=== PATIENT | female | born 1995 | race Caucasian/White ===

== ENCOUNTER → 2018-07-16 13:11 | Outpatient (CLI) | payer BC ==
[~2018-07-16 13:11] MED LIST: HYDROCODONE-APA1 TAB PO; IBUPROFEN600 MG PO; PRENATAL COMPLE1 TAB PO
== END | disposition home or self-care (01) ==
LOC: D.LDO 13:11
PROVIDERS: ATTEND Obstetrics & Gynecology
DX: O26.893 Other specified pregnancy related conditions, third trimester (principal)

== ENCOUNTER 2018-10-22 18:17 | Outpatient (CLI) | payer BC ==
[2018-10-22 19:14] LABS: APPEARANCE CLEAR (CLEAR); BILIRUBIN NEGATIVE (NEGATIVE); COLOR YELLOW (YELLOW); GLUCOSE NEGATIVE (NEGATIVE); KETONE NEGATIVE (NEGATIVE); NITRITE NEGATIVE (NEGATIVE); PROTEIN NEGATIVE (NEGATIVE); SPECIFIC GRAVITY 1.015 (1.005-1.020); UROBILINOGEN NORMAL (NORMAL)
[2018-10-22 19:16] LABS: BACTERIA MANY /hpf (NONE SEEN); EPITHELIAL CELLS 0-5 /hpf (0-5); RED CELLS - URINE 0-5 /hpf (0-5); WHITE CELLS - URINE 0-5 /hpf (0-5)
== END 2018-10-23 06:00 | disposition home or self-care (01) ==
LOC: D.LDO 18:17 → D.LD 21:50 → D.LDO 10-23 06:00
PROVIDERS: ATTEND Obstetrics & Gynecology
DX: O26.899 Other specified pregnancy related conditions, unspecified trimester (principal); Z3A.00 Weeks of gestation of pregnancy not specified

== ENCOUNTER 2018-10-26 01:59 | Inpatient (IN) | payer BC ==
[2018-10-26] VITALS (14 sets, daily range): BP systolic 110–138; BP diastolic 55–70; BMI 29.2
[2018-10-26 02:31] LABS: APPEARANCE CLEAR (CLEAR); BILIRUBIN NEGATIVE (NEGATIVE); COLOR YELLOW (YELLOW); GLUCOSE NEGATIVE (NEGATIVE); KETONE NEGATIVE (NEGATIVE); NITRITE NEGATIVE (NEGATIVE); PROTEIN NEGATIVE (NEGATIVE); UROBILINOGEN NORMAL (NORMAL)
[2018-10-26] MEDS ORDERED: MACROBID100 MG PO (03:31)
[2018-10-26 03:44] LABS: HEMATOCRIT 35.4 % (36.0-48.0); HEMOGLOBIN 12.5 g/dL (12-16); MCH 31.1 pg (26.0-34.0); MCHC 35.3 g/dL (31.0-37.0); MCV 88.1 fL (80.0-100.0); MEAN PLATELET VOLUME 11.6 fL (7.4-10.4); RBC 4.02 10x6/uL (4.00-5.40); WBC 11.6 10x3/uL (4.8-10.8)
--- NOTE | 2018-10-26 04:37 | NUR ---
0425 VIABLE BABY GIRL DELIVERED CORD BLOOD AND GASES DONE AND SENT OUT, MARI.
--- NOTE | 2018-10-26 05:25 | NUR ---
FUNDUS IS FIRM, MIDLINE AT THE UMBILICUS. EDMUND PAD IN PLACE. MODERATE LOCHIA NOTED ON EDMUND PAD, NO CLOTS PRESENT. NEW PAD APPLIED. WILL CONTINUE TO MONITOR.
--- NOTE | 2018-10-26 05:49 | NUR ---
REC'D BACK TO ROOM 1273 FROM RECOVERY ROOM. AA&OX4. DENIES PAIN. VSS. FUNDUS FIRM, MIDLINE AND U2 WITH SMALL AMT RUBRA LOCHIA, NO CLOTS PRESENT. BREATH SOUNDS CLEAR AND EQUAL. BOWEL SOUNDS HYPOACTIVE X4 QUADRANTS. BULKY DRSG NOTED TO LOWER TRANSVERSE ABD, NO DRAINAGE NOTED. 300 MLS CLEAR LIGHT YELLOW URINE EMPTIED FROM CHAPMAN. INSTRUCTED ON INCENTIVE SPIROMETER USE WITH RETURN DEMONSTRATION NOTED. ICE PACK PLACED. SCD'S ON. PLAN OF CARE DISCUSSED, VERBALIZES UNDERSTANDING. DENIES QUESTIONS. FAMILY UPDATED AND BROUGHT TO ROOM PER PT REQUEST. NBN CONTACTED FOR UPDATE ON . BED IN LOW POSITION WITH UPPER SIDE RAILS RAISED X2. CALL LIGHT AND PHONE WITHIN REACH.
--- NOTE | 2018-10-26 05:58 | NUR ---
CORRECTION~FUNDUS IS FIRM U-2.
--- NOTE | 2018-10-26 06:10 | NUR ---
V/S REMAIN STABLE. FUNDUS REMAINS FIRM, MIDLINE AND U2 WITH SMALL AMT RUBRA LOCHIA, NO CLOTS PRESENT. TORADOL GIVEN AND NEW BAG NS WITH 20 UNITS PIT HUNG PER ORDER. EDUCATED ON MED AND FREQUENCY. FAMILY REMAINS AT BEDSIDE CONVERSING WITH PT.
--- NOTE | 2018-10-26 07:10 | NUR ---
ASSUME CARE OF THIS PATIENT AT THIS TIME. SITTING UP IN BED, U/3 FIRM MIDLINE, RUBRA SMALL TO MOD, VS OBTAINED, NURSERY RN TO ROOM WITH . PT PLANS TO BREAST FEED. NURSERY RN ASSISTING PATIENT. DENIES THOUGHTS OF HURTING SELF OR OTHERS. MOVES LE SLIGHTLY AT FEET. UNABLE TO LIFT HER LEGS. 5/10 INCISIONAL BURNING. RECIEVED TORADOL AND DEMERAL AT APPROX 0600. DR BEE ON L&D AND INFORMED THAT PT MAY NOT TOLERATE WAITING 3 MORE HOURS BEFORE NEXT PAIN MED. HE WILL ENTER ORDERS.
--- NOTE | 2018-10-26 07:40 | NUR ---
CALLED TO ROOM, PT STATES "I THINK I HAVE SOMETHING COMING OUT DOWN THERE". SATURATED TWO AND 1/2 EDMUND-PADS. U/3 FIRM CLEANED EDMUND-AREA, NO CONTINUED BLEEDING. DR BEE ON FLOOR AND NOTIFIED.
--- NOTE | 2018-10-26 07:48 | OP ---
PATIENT NAME: NELL FARRELL MEDICAL RECORD: [id number] :93 LOCATION:[facility] [id number] ADMISSION DATE:10/26/18 SURGEON: SALVATORE BEE MD DATE OF OPERATION: 10/26/2018 PREDELIVERY DIAGNOSES: 1. Active labor at 37 weeks post 2. Prior section. POSTOPERATIVE DIAGNOSES: 1. Mother delivered at 37 weeks. 2. History of prior . PROCEDURE: Repeat low transverse section. SURGEON: Salvatore Bee MD PET FOOD DEBONER: Duran Lloyd. ANESTHESIA: Spinal. FINDINGS: Viable female , vertex presentation, Apgars 9 and 9, weight 2565 grams. Unremarkable uterus, tubes, and ovaries bilaterally. SPECIMEN REMOVED: Placenta. SPECIMEN DISPOSITION: Discarded. ESTIMATED BLOOD LOSS: 800 cc. URINE: 200 cc of clear urine. FLUIDS: 2000 cc of Lactated Ringer's. COMPLICATIONS: None. DRAIN: Beatty to gravity. INDICATIONS: The patient is a 22-year-old multiparous female with prior history of section. The patient is at 37 weeks' gestation with painful regular contractions. The patient was consented for repeat low transverse section. DESCRIPTION OF PROCEDURE: After informed consent was assured, the patient was taken to the operating room where anesthetic was obtained without difficulty. The patient is now prepped and draped and assessment of the anesthetic finds it to be adequate. Incision was made over the old scar, carried down to the underlying layer of the fascia, which was opened in the midline and extended laterally. Rectus bellies were dissected free superiorly and inferiorly, then in the midline. DeLee all-purpose retractor was inserted. Bladder flap developed and the bladder blade now reinserted. Low transverse hysterotomy was performed and delivered onto the abdomen atraumatically. The cord was doubly clamped and cut and the infant was passed to the attendant. A cord segment was taken for samples and the placenta was delivered via Crede maneuver. Uterus was now exteriorized, cleared of all clot and debris. Uterus was OPERATIVE REPORT [id number] NELL FARRELL returned to the abdomen and DeLee retractor placed. The hysterotomy was closed with running locked stitch of chromic. The uterus again was exteriorized. Posterior cul-de-sac cleared of all clot and debris. Uterus was returned to the abdomen and pelvis was irrigated. Inspection of the hysterotomy reveals adequate hemostasis. The rectus bellies were reapproximated in the midline with a loose interrupted chromic stitch. PDS was used to reapproximate the fascia. Subcutaneous tissue was irrigated. Bleeding vessels cauterized and the skin reapproximated with marycarmen. Sterile dressing is applied. Sponge, lap, needle counts were correct times 2. TRANSINT:[id number] Voice Confirmation ID: [id number] DOCUMENT ID: [id number] SALVATORE BEE MD at 0748 CC: [id number] DICTATION DATE: 10/26/18 0452 COMPLEX DIRECTOR: 10/26/18 0538 ADM IN [facility] [address] [place] [address]
--- NOTE | 2018-10-26 08:00 | NUR ---
U/3 FIRM MIDLINE, RUBRA SMALL TO MOD. NO CONTINUOUS ACTIVE BLEEDING. IN ROOM. VISITORS AT BEDSIDE. CLEAR LIQUID DIET TRAY PRESENT. SCD'S ON AND WORKING BILATERLLY. IV LR 20 UNITS PITOCIN INFUSING INTO LEFT WRIST. NO SIGNS OF INFILTRATION. CHAPMAN DRAINING YELLOW URINE. SIDE RAILS UP X 2, CALL LIGHT IN REACH. ICE PACK ON INCISIONAL DRESSING.
--- NOTE | 2018-10-26 08:11 | NUR ---
CYTOTEC 200 MCG GIVEN PO PER MD ORDER AFTER EXPLAINING TO PATIENT PURPOSE OF MEDICATION.
--- NOTE | 2018-10-26 09:06 | NUR ---
MOVING LOWER EXTREMETIES. ABLE TO LIFT BUTTOCKS UP. U/3 FIRM MIDLINE. DEMEROL 50 MG GIVEN SLOW IVP FOR RELIEF OF C/O CRAMPING/BURNING 10/13. CLEAN PERINEAL AREA WITH WARM WASHCLOTH. CLEAN CHUX ON BED. NEW EDMUND-PADS X 2 PLACED. USED INCENTIVE SPIROMETER X3 FOLLOWED BY WEAK COUGH. INSTRUCTED ON INCISIONAL SPLINTING. POSITIONED TO RIGHT SIDE. FRESH ICE PACK PLACE OVER INCISIONAL DRESSING. SCD'S ON BILATERALLY AND FUNCTIONING. SIDE RAILS UP X 2, CALL LIGHT IN REACH. INFANT IN CRIB, RESP EVEN. FOB SLEEPING ON COUCH. TO CALL IF ANYTHING IS NEEDED.
--- NOTE | 2018-10-26 10:20 | NUR ---
SITTING UP IN BED HOLDING CELL PHONE. INFANT IN CRIB. FOB ASLEEP ON COUCH. 3-08/13 CRAMPJUAN MANUEL SAYS HER PAIN IS MUCH BETTER. SAYS CURRENT PAIN IS LIVABLE. STRAWBERRY JELLO GIVEN. DISCUSSED PLAN OF CARE THIS AM AND ANTICIPATION FOR "NORMALIZATION" THIS AFTERNOON PER DR SOUZA ROUTINE POST OP CARE. VERABLIZED UNDERSTANDING. U/3 FIRM MIDLINE, RUBRA SMALL. SIDE RAILS UP X 2, CALL LIGHT IN REACH.
--- NOTE | 2018-10-26 11:31 | NUR ---
HOLDING IN ARMS . RUBRA SCANT. 3/10 INCISIONAL PAIN. NO REQUESTS AT THIS TIME. VISITORS X 2 IN ROOM. SIDERAILS UP X 2, CALL LIGHT IN REACH. TO CALL IF ANYTHING IS NEEDED. VERBALIZED UNDERSTANDING.
--- NOTE | 2018-10-26 12:28 | NUR ---
SITTING UP IN BED TALKING TO VISITORS. L&D ADMIT HISTORY COMPLETED. DENIES NEEDING ANYTHING AT THIS TIME. SIDE RAILS UP X 2, CALL LIGHT IN REACH. TO CALL IF ANYTHING IS NEEDED.
--- NOTE | 2018-10-26 13:10 | NUR ---
CALLED TO ROOM BY PT TO CHECK EDMUND-PAD. MOD BLOOD NOTED, UTERUS U/2 FIRM, CLEANED UP PERINEAL AREA. NO CONTINUOUS ACTIVE BLEEDING. CLEAN CHUX AND EDMUND-PAD X2 PLACED. CHAPMAN DRAINING. STATES "I'M NOT REALLY HAVING PAIN, JUST SORE. 3-08/13" ASKED ABOUT CONTINUING ANTIBIOTIC FOR UTI TREATED COUPLE OF DAYS AGO (MACROBID). WILL CONTACT MD TO CHECK. VERBALIZED UNDERSTANDING. NO ADDITIONAL REQUESTS. HAS BEEN USING INCENTIVE SPIROMETER HOURLY. CALL LIGHT IN REACH.
--- NOTE | 2018-10-26 13:20 | NUR ---
DR BEE CONTACTED REGARDING HX OF UTI. ALSO ASKED MD IF HE WANTED PT NORMALIZED AT 12 HOURS. ORDERS RECEIVED.
--- NOTE | 2018-10-26 14:03 | NUR ---
CALLED TO ROOM BY PATIENT. FEELS LOCHIA FLOW. EVALUATED EDMUND-PAD, SMALL LOCHIA RUBRA, NOT SATURATING PAD, NOTED. CLEANED PERINEAL AREA, NO ACTIVE BLEEDING, NO CLOT NOTED AT INTROITUS. CLEAN CHUX AND EDMUND-PAD PLACED ON BED. EXPLAINED PP LOCHIA FLOW. WILL CONTINUE TO MONITOR. INFORMED WILL BE GETTING ROCEPHIN IVPB FOR UTI TREATMENT. REGULAR DIET AT BEDSIDE, INFANT IN CRIB SLEEPING. FOB SLEEPING ON COUCH. SIDE RAILS UP X 2, CALL LIGHT IN REACH.
--- NOTE | 2018-10-26 14:53 | NUR ---
DEMEROL 50 MG GIVEN SLOW IVP FOR 5/10 INCISIONAL BURNING AFTER DISCUSSING PAIN MANAGEMENT OPTIONS. STATES "THE ONE THAT WORKS THE FASTEST." FRESH ICE PACK GIVEN AND PLACED OVER INCISIONAL DRESSING. GETTING READY TO BREASTFEED. WILL TURN LIGHTS ON LOW. EDMUND-PADS CLEAN. SIDERAILS UP X 2, CALL LIGHT IN REACH.
--- NOTE | 2018-10-26 16:15 | NUR ---
SITTING UP IN BED . SAYS SHE REALLY ISN'T HAVING ANY PAIN. ASKED PT IF SHE MEANS ZERO. STATES "MAYBE A 2". NO REQUEST. VISITORS IN ROOM. TO CALL IF ANYTHING IS NEEDED.
--- NOTE | 2018-10-26 17:08 | NUR ---
ENRRIQUE GATES AFTER . EDMUND-CARE COMPLETED. CHAPMAN DC'D WITHOUT DIFFICULTY. IV FLUIDS DC'S. SALINE LOCK LEFT IN PLACE. ATE FOOD BROUGHT IN BY FAMILY, ENCOURAGED TO AVOID EATING TOO MUCH AT THIS TIME. VERBALIZED UNDERSTANDING. EDMUND-PAD PLACED CLEAN CHUX ON BED. DISCUSSED CHANGED OF PAIN MEDS TO ORAL PILLS AND TO AVOID WAITING TOO LONG TO ASK FOR PAIN MEDICATION. VERBALIZED UNDERSTANDING. SIDE RAILS UP, CALL LIGHT IN REACH. VISITORS AND INFANT IN ROOM.
--- NOTE | 2018-10-26 18:11 | NUR ---
C/O 6/10 STINGING BURNING PAIN RIGHT SIDE OF INCISION. PERCOCET 5 MG GIVEN PO FOR RELIEF. ASSISTED WITH POSITION CHANGE TO LEFT SIDE. POSITIONED WITH PILLOW. U/2 FIRM MIDLINE, EDMUND-PAD CLEAN. DOES NOT FEEL NEED TO VOID. DR BEE WAS CONTACTED TO CHECK CHANGE IN IV TORADOL TO PO TORADOL. ORDERS WERE CHANGED. WILL NEED CINEMA OR THEATRE MANAGER TO GET MED. FRESH ICE PACK GIVEN. VISITORS IN ROOM, INFANT IN ARMS OF FOB. SIDE RAILS UP X2 CALL LIGHT IN REACH. ENCOURAGED TO TRY TO GET SOME SLEEP. VERBALIZED UNDERSTANDING.
--- NOTE | 2018-10-26 19:15 | NUR ---
PT UP TO RESTROOM TO VOID 350 ML NOTED AT THIS TIME. DRESSING TO ABDOMEN DRY AND INTACT. SALINE LOCK TO THE LEFT WRIST. SITE CLEAR AND PATENT. Gloria BELLO RN
--- NOTE | 2018-10-26 19:57 | NUR ---
1939 PT ASSISTED BACK TO BED AT THIS TIME. LUNGS CLEAR. BOWEL SOUNDS TO UPPER QUADRANTS ACTIVE. BILATERAL LOWER QUADRANTS HYPOACTIVE. PT STATES THAT SHE IS STARTING TO PASS GAS. FUNDUS FIRM, U/2, SMALL LOCHIA NOTED. PT TOLERATING REGULAR DIET AT THIS TIME. NO NAUSEA/VOMITING NOTED. SCDS ON AND FUNCTIONAL. NO ACUTE DISTRESS NOTED. SIDERAILS UP X2 FOR SAFETY. CALL LIGHT IN PT REACH. SPOUSE AT BEDSIDE AND SUPPORTIVE. Gloria BELLO RN
--- NOTE | 2018-10-26 21:04 | NUR ---
PT ASLEEP BUT EASILY AWAKENED AT THIS TIME. SCHEDULED DOSE OF CYTOTEC GIVEN AT THIS TIME. NO DISTRESS NOTED. Gloria BELLO RN
--- NOTE | 2018-10-26 21:35 | NUR ---
PT ASSISTED UP TO VOID. PT VOIDED 300 ML. SCANT LOCHIA NOTED. NO DISTRESS NOTED. Gloria BELLO RN
--- NOTE | 2018-10-26 21:56 | NUR ---
MEDICATED FOR PAIN LEVEL OF 7. WILL CONTINUE TO MONITOR. Gloria BELLO RN
--- NOTE | 2018-10-27 01:06 | NUR ---
HS CAME TO LABOR UNIT TO OVERRIDE TORADOL, TORADOL ADMINISTERED PER MD ORDERS AT THIS TIME. PT ASSISTED UP TO BATHROOM, VOIDED WITHOUT DIFFICULTY, BACK TO BED AND SCD BOOTS REPLACED AND MACHINE IN WORKING ORDER, FRESH ICE PACK PROVIDED FOR ABDOMEN, PT DENIES OTHER NEEDS. WILL CONTINUE TO MONITOR.
[2018-10-27 06:14] LABS: BASOPHILS 0.2 % (0-2); EOSINOPHILS 1.4 % (0-7); IMMATURE GRANULOCYTES 0.4 % (0-5); LYMPHOCYTES 23.1 % (15-50); MCH 30.5 pg (26.0-34.0); MCHC 34.3 g/dL (31.0-37.0); MEAN PLATELET VOLUME 11.4 fL (7.4-10.4); MONOCYTES 9.4 % (2-11); NEUTROPHILS 65.5 % (40-80); RDW 13.2 % (11.5-14.5); WBC 10.2 10x3/uL (4.8-10.8)
[2018-10-27 06:23] LABS: HEMATOCRIT 28.3 % (36.0-48.0); HEMOGLOBIN 9.7 g/dL (12-16); PLATELET COUNT 125 10x3/uL (130-400); RBC 3.18 10x6/uL (4.00-5.40)
[2018-10-27 07:40] VITALS: BP 113/61
--- NOTE | 2018-10-27 07:40 | NUR ---
AM ASSESSMENT COMPLETED. PT HAS LARGE WHITE DRESSING OVER INCISION, C/D/I. ABDOMEN PALPATES SOFT. PT REPORTS PASSING GAS. DENIES HEAVY BLEEDING OR PASSING CLOTS. PT DENIES SOB, NAUSEA, OR DIFFICULTY BREATHING. SEE FLOWSHEET FOR ASSESSMENT. PLAN FOR TRANSFER TO NEW ROOM EXPLAINED TO PT AND PT AGREES. FRESH ICE WATER SERVED TO PT. PT DENIES ALL OTHER NEEDS.
--- NOTE | 2018-10-27 08:49 | NUR ---
ROUNDS MADE. PT SITTING UP IN BED GETTING READY TO GO TO THE BATHROOM. PAIN AND NEEDS ASSESSED. PT DENIES NEEDS AT PRESENT. RATES PAIN 3/10. QUESTIONS IF SIG OTHER CAN GET HER SOMETHING ELSE TO EAT FOR BREAKFAST. INFORMED THAT IS FINE.
--- NOTE | 2018-10-27 12:20 | NUR ---
THIS RN TO BEDSIDE FOR PAIN MEDICATION ADMINISTRATION PER PT REQUEST. PT CURENTLY SITTING UP IN BED NURSING W/OLDER CHILD IN BED W/HER. PT DENIES FURTHER NEEDS AT THIS TIME. FAMILY HAS BROUGHT LUNCH FROM [facility]. FAMILY AT BEDSIDE.
--- NOTE | 2018-10-27 13:27 | NUR ---
rounds made for pain reassessment. pt rates pain 2/10. while at bedside, pt request to ambulate off the unit and for saline lock to be removed. after reviewing pt labs, saline lock removed w/site wnl. bandaid placed over site. pt dresses in her own clothing. transports via open crib to [facility] so she and family may ambulate off unit. pt denies further needs at this time.
--- NOTE | 2018-10-27 14:29 | NUR ---
ROUNDS MADE. PT SITTING ON SIDE OF BED W/ UP IN ARMS. PT REPORTS SHE IS GETTING READY TO NURSE. RATES PAIN 3/10. DENIES NEEDS AT THIS TIME.
--- NOTE | 2018-10-27 18:30 | NUR ---
pt ambulatory in hallway to nurses desk. medication adm record reviewed with pt as pt requests pain medication. see emar for all meds adm by this rn. to pt's room, abdomen palpates soft, dressing over incision c/d/i. encouraged pt to remove bandage after taking a shower tonight. pt agrees. fresh ice water served to pt. sr up x 2, call light and phone within reach. fob at bedside, holding infant. pt denies all other needs.
--- NOTE | 2018-10-27 19:45 | NUR ---
PM ROUNDS MADE, PT VISITING WITH FAMILY, IN ROOM, INFORMED PT THAT I WILL RETURN SHORTLY TO DO ASSESSMENT, PT VERBALIZES UNDERSTANDING, DENIES NEEDS AT THIS TIME
[2018-10-27 20:15] VITALS: BP 121/74
--- NOTE | 2018-10-27 21:15 | NUR ---
ASSESSMENT PER FLOW SHEET, PT OUT OF SHOWER, BACK TO BED, PT REMOVED DRESSING, BIKINI INC WITH LEWIS INTACT, SMALL DRAINAGE NOTED, EDMUND PAD OVER INC FOR COMFORT AND MOISTURE CONTROL, PT INST ON AND VERBALIZES UNDERSTANDING OF INCISIONAL CARE, FF, ML, U/1, PT REPORTS LITE BLEEDING WITH A FEW SMALL STRINGY CLOTS EARLIER IN THE DAY, PT REPORTS FLATUS, NO BM AND VOIDING WITH NO DIFFICULTY, PT DENIES NEEDS AT THIS TIME, FAMILY AT BEDSIDE, TRASH REMOVED
--- NOTE | 2018-10-27 22:30 | NUR ---
PT HOLDING INFANT, FOB AT BEDSIDE, PT REQUESTS THAT SHE BE WOKE UP FOR ADM OF PAIN MED, INFORMED PT THAT I WILL ADM PAIN MED DURING VS, PT VERBALIZES UNDERSTANDING, DENIES ARNULFO NEEDS
[2018-10-27 23:48] VITALS: BP 106/66
--- NOTE | 2018-10-27 23:48 | NUR ---
PT AWAKE HOLDING , VS OBTAINED, ADM TORADOL AND PAIN MED PO PER MD ORDERS, SEE EMAR, PT DENIES FURTHER NEEDS, FOB ASLEEP AT BEDSIDE
--- NOTE | 2018-10-28 01:00 | NUR ---
PT RESTING WITH EYES CLOSED, RESP QUIET, NO DISTRESS NOTED, LEFT UNDISTURBED AT THIS TIME, IN OPEN CRIB CART AND FOB ASLEEP AT BEDSIDE
--- NOTE | 2018-10-28 03:02 | NUR ---
PT AMB TO FRON DESK, GAIT STEADY, REQUESTED AND PROVIDED EDMUND PADS, DENIES FURTHER NEEDS
[2018-10-28 04:20] VITALS: BP 113/67
--- NOTE | 2018-10-28 04:20 | NUR ---
PT AWAKE, HOLDING INFANT, VS OBTAINED, ADM PAIN MED PER MD ORDERS, PT DENIES FURTHER NEEDS, FOB ASLEEP AT BEDSIDE
--- NOTE | 2018-10-28 06:41 | NUR ---
PT AWAKE, ADM TORADOL PER MD ORDERS, SEE EMAR, PT DENIES NEEDS AT THIS TIME
--- NOTE | 2018-10-28 07:00 | NUR ---
SHIFT REPORT TO DAY SHIFT
[2018-10-28 07:18] LABS: RAPID PLASMA REAGIN Non Reactive (Non Reactive)
--- NOTE | 2018-10-28 07:20 | NUR ---
dr. pride on unit, rounds made.
--- NOTE | 2018-10-28 08:00 | NUR ---
am assessment completed. see flowsheet.
[2018-10-28 08:04] VITALS: BP 101/68
--- NOTE | 2018-10-28 11:00 | NUR ---
dr. pride on unit, scripts given to this rn by for percocet 7.5, and motrin 800 mg for discharge.
--- NOTE | 2018-10-28 12:47 | NUR ---
pt up to bedside chair, pillows provided for comfort. pt has requested pain medication for "burning type pain" to incision. ice pack provided for comfort to incisional area. sig other at bedside. pt denies all other needs. see emar for all meds adm by this rn.
--- NOTE | 2018-10-28 13:39 | NUR ---
pt at desk and stating the pain medication she received approx 1 hr ago has eased her pain, but did not take the pain away. pt is requesting more pain med. message left for yasir from [facility] to call me.
--- NOTE | 2018-10-28 14:15 | NUR ---
dr. pride calls to unit, with report given to md of pt's c/o pain to incisional area after taking percocet 10 mg po and toradol 10 mg po at 1247, pt states those meds helped a little, but not much. telephone order received to administer percocet 10 mg two po for c/o pain.
[2018-10-28] MEDS ORDERED: PERCOCET 7.5/321 TAB PO (14:31)
[2018-10-28] MEDS ORDERED: IBUPROFEN800 MG PO (14:31)
--- NOTE | 2018-10-28 15:00 | NUR ---
percocet 10 mg one po given for c/o pain to incisional area, see emar for med adm. pt only wants to take one for now, as she took one percoet 10 mg one po "not too long ago". discharge instructions explained to pt, copies provided, along with prescriptions, and pp instruction sheets. pt denies questions.
--- NOTE | 2018-10-28 16:34 | NUR ---
pt discharged off unit ambulatory in stable condition with in carseat, with sig other.
== END 2018-10-28 16:34 | disposition home or self-care (01) | DRG 788 ==
LOC: D.LDO 01:59 → D.LD 03:12 → D.WS 10-27 11:45
PROVIDERS: ADMIT Obstetrics & Gynecology; ATTEND Obstetrics & Gynecology
PROC: 10D00Z1 Extraction of Products of Conception, Low, Open Approach (ICD-10-PCS; principal; 2018-10-26 03:43)
DX: O34.211 Maternal care for low transverse scar from previous cesarean delivery (principal); Z3A.37 37 weeks gestation of pregnancy; Z37.0 Single live birth